=== PATIENT | male | born 1945 | race Two or more races ===

== ENCOUNTER 2024-01-06 05:35 | Day surgery (SDC) | payer OTHER ==
[2023-12-30 14:44] VITALS: BP 130/78
[~2024-01-06] VITALS: Ht 180.3 cm; Wt 99.8 kg
[~2024-01-06 05:35] MED LIST: AVAPRO300 MG PO; CLONIDINE HCL0.1 MG PO; LEVO-T125 MCG PO; METFORMIN HCL500 M3 PO; SIMVASTATIN5 MG PO
[2024-01-06] MEDS ORDERED: CEFAZOLIN SODIUM 1,000 MG VIAL ONE (10:08)
[2024-01-06] MEDS ORDERED: CEFAZOLIN SODIUM 1,000 MG VIAL IV ONE (13:00)
== END 2024-01-06 14:55 | disposition home or self-care (01) ==
LOC: CIR.AMB 05:35
PROVIDERS: ATTEND Surgery Surgery of the Hand
DX: M65.841 Other synovitis and tenosynovitis, right hand (principal); E11.9 Type 2 diabetes mellitus without complications; E03.9 Hypothyroidism, unspecified; I10 Essential (primary) hypertension